=== PATIENT | female | born 1975 | race Caucasian/White ===

== ENCOUNTER → 2021-01-13 | Outpatient (CLI) | payer OTHER ==
[2021-01-13 10:06] LABS: HEMOGLOBIN 14.4 g/dl (12.0-16.0); MEAN CORPUSCULAR VOLUME 87.2 FL (78-98); WHITE BLOOD COUNT 5.7 X10'3 (4.5-11.0)
[2021-01-13 10:08] LABS: HEMATOCRIT 41.9 % (35.0-45.0); MEAN CORPUSCULAR HEMOGLOBIN 30.1 PG (27.0-31.0); MEAN CORPUSCULAR HGB CONC 34.5 g/dL (33.0-36.5); MEAN PLATELET VOLUME 7.9 FL (7.4-10.4); PLATELET COUNT 260 X10'3 (140-440); RED CELL DISTRIBUTION WIDTH 13.7 % (11.5-14.5)
[2021-01-13 10:51] LABS: PLATELET ESTIMATE NORMAL; TOTAL CELLS COUNTED 100
== END | disposition home or self-care (01) ==
LOC: RAD 09:23
DX: D50.9 Iron deficiency anemia, unspecified (principal); M13.80 Other specified arthritis, unspecified site
CPT/HCPCS: 36415; 73521; 85007; 85025

== ENCOUNTER 2021-08-05 10:11 | Outpatient (CLI) | payer OTHER ==
[~2021-08-05] VITALS: Ht 158.8 cm; Wt 54.4 kg
[2021-08-05] MEDS ORDERED: albuterol 2.5 MG/3 ML nebule NEB ONE (10:40)
== END 2021-08-05 23:59 | disposition home or self-care (01) ==
LOC: RT 10:11
PROVIDERS: ATTEND Chiropractor
DX: R06.02 Shortness of breath (principal); D68.61 Antiphospholipid syndrome; J45.909 Unspecified asthma, uncomplicated; Z79.899 Other long term (current) drug therapy
CPT/HCPCS: 36415; 71046; 86146; 94060; 94760